=== PATIENT | female | born 1955 | race Caucasian/White ===

== ENCOUNTER → 2017-07-25 | Outpatient (CLI) | payer MEDICAID ==
[~2017-07-25] MED LIST: No meds per pt.
== END | disposition home or self-care (01) ==
LOC: CFH 11:27
PROVIDERS: ATTEND Family Medicine
DX: Z13.820 Encounter for screening for osteoporosis (principal); M81.0 Age-related osteoporosis without current pathological fracture
CPT/HCPCS: 77080

== ENCOUNTER 2018-02-12 13:30 | Inpatient (IN) | payer MEDICAID ==
[~2018-02-12] VITALS: Ht 162.6 cm; Wt 56.6 kg
[2018-02-12 14:15] LABS: HCT (SEDRATE) 42.1 % (34.6-47.8)
[2018-02-12 14:16] LABS: BASOPHILS # (AUTO) 0.04 x10^3/uL (0-0.1); BASOPHILS % (AUTO) 1 % (0-1); EOSINOPHILS # (AUTO) 0.05 x10^3/uL (0-0.4); EOSINOPHILS % (AUTO) 1 % (1-7); LYMPHOCYTES # (AUTO) 2.35 x10^3/uL (1-3.4); LYMPHOCYTES % (AUTO) 38 % (22-44); MD NO; MEAN CORPUSCULAR HEMOGLOBIN 31.3 pg (27.0-34.8); MEAN CORPUSCULAR VOLUME 91.9 fL (80-100); MEAN PLATELET VOLUME 7.7 fL (7.4-10.4); MONOCYTES # (AUTO) 0.34 x10^3/uL (0.2-0.8); MONOCYTES % (AUTO) 6 % (2-9); NEUTROPHILS # (AUTO) 3.44 x10^3/uL (1.8-6.8); NEUTROPHILS % (AUTO) 55 % (42-75); PLATELET COUNT 281 x10^3/uL (130-400); RED BLOOD COUNT 4.59 x10^6/uL (3.82-5.3); RED CELL DISTRIBUTION WIDTH 13.4 % (9.6-15.2)
[2018-02-12 14:18] LABS: MICROSCOPIC NOT IND
[2018-02-12 14:25] LABS: INTERNATIONAL NORMALIZED RATIO 1.03 (0.93-1.1); PROTHROMBIN TIME 10.6 Seconds (9.6-11.5)
[2018-02-12 14:28] LABS: ALBUMIN 4.3 g/dL (3.4-5.0); ANION GAP 8 mmol/L (5-15); CALCIUM 9.2 mg/dL (8.5-10.1); CHLORIDE 106 mmol/L (98-107)
[2018-02-12 14:33] LABS: ALANINE AMINOTRANSFERASE 28 U/L (12-78); ALKALINE PHOSPHATASE 63 U/L (45-117); BILIRUBIN,TOTAL 0.4 mg/dL (0.2-1.0); TOTAL PROTEIN 7.5 g/dL (6.4-8.2)
[2018-02-15] MEDS ORDERED: LACTATED RINGERS 1,000 ML IV SCH (06:10)
[2018-02-15 06:38] VITALS: BP 134/78
[2018-02-15] MEDS ORDERED: BUPIVACAINE/PF 0.5% ONE (06:39)
[2018-02-15] MEDS ORDERED: TRANEXAMIC ACID 100 MG/ML, 10ML ONE ×2 (06:39)
[2018-02-15] MEDS ORDERED: VANCOMYCIN 1,000 MG ONE (06:40)
[2018-02-15] MEDS ORDERED: THROMBIN 20,000 UNIT VIAL TP ONE (06:40)
[2018-02-15] MEDS ORDERED: EPINEPHRINE 1 MG/ML, 1ML ONE (06:49)
[2018-02-15] MEDS ORDERED: GABAPENTIN 300 MG CAPSULE PO ONE (07:00)
[2018-02-15] MEDS ORDERED: ONDANSETRON ODT 8 MG PO ONE (07:00)
[2018-02-15] MEDS ORDERED: OXYcodone IR 5MG TABLET PO ONE (07:00)
[2018-02-15] MEDS ORDERED: SCOPOLAMINE PATCH, 1.5MG PATCH.TD72 TD ONE (07:00)
[2018-02-15] MEDS ORDERED: ACETAMINOPHEN 500 MG TABLET PO ONE (07:00)
[2018-02-15] MEDS ORDERED: PROPOFOL 10 MG/ML, 20ML ONE (07:02)
[2018-02-15] MEDS ORDERED: CEFAZOLIN 1,000 MG ONE (07:02)
[2018-02-15] MEDS ORDERED: DEXAMETHASONE 4 MG/ML, 1ML ONE ×2 (07:02)
[2018-02-15] MEDS ORDERED: SUCCINYLCHOLINE 20 MG/ML, 10ML ONE (07:02)
[2018-02-15] MEDS ORDERED: FENTANYL PF 250 MCG/5ML ONE (07:04)
[2018-02-15] MEDS ORDERED: PROPOFOL 150 ML ONE (07:04)
[2018-02-15] MEDS ORDERED: MIDAZOLAM 1 MG/ML, 2ML ONE (07:04)
[2018-02-15] MEDS ORDERED: OXYcodone 5 MG/5 ML ORAL.SOL UDC PO PRN (07:30)
[2018-02-15] MEDS ORDERED: HALOPERIDOL 5 MG/ML IV PRN (07:30)
[2018-02-15] MEDS ORDERED: LABETALOL 5MG/ML, 20ML IV PRN ×2 (07:30→14:00)
[2018-02-15] MEDS ORDERED: ONDANSETRON 2MG/ML, 2ML IV PRN ×2 (07:30→14:00)
[2018-02-15] MEDS ORDERED: EPHEDRINE 50 MG/ML, 1ML IVPush PRN (07:30)
[2018-02-15] MEDS ORDERED: hydrALAzine 20 MG/ML, 1ML IV PRN (07:30)
[2018-02-15] MEDS ORDERED: ALBUTEROL SULFATE 2.5 MG/3 ML NPPB PRN (07:30)
[2018-02-15] MEDS ORDERED: PROMETHAZINE 25 MG/ML, 1ML IV PRN (07:30)
[2018-02-15] MEDS ORDERED: FENTANYL PF 100 MCG/2ML IV PRN (07:30)
[2018-02-15] MEDS ORDERED: METOPROLOL 1 MG/ML, 5ML IV PRN (07:30)
[2018-02-15] MEDS ORDERED: MEPERIDINE/PF 25MG/0.5ML IVPush PRN (07:30)
[2018-02-15] MEDS ORDERED: DIAZEPAM 5 MG/ML, 2ML IVPush PRN (07:30)
[2018-02-15] MEDS ORDERED: ONDANSETRON 2MG/ML, 2ML ONE (07:34)
[2018-02-15] MEDS ORDERED: BACITRACIN 50,000 UNIT ONE (08:05)
[2018-02-15] MEDS ORDERED: OXYcodone 5 MG/5 ML ORAL.SOL UDC ONE (12:20)
[2018-02-15] MEDS: LABETALOL 5MG/ML, 20ML IV SCH ×2 (13:58→22:00)
[2018-02-15] MEDS ORDERED: BISACODYL 10 MG SUPP PR PRN (14:00)
[2018-02-15] MEDS ORDERED: PROMETHAZINE 25 MG/ML, 1ML IM PRN (14:00)
[2018-02-15] MEDS ORDERED: DIAZEPAM 5 MG TABLET PO PRN (14:00)
[2018-02-15] MEDS ORDERED: KETOROLAC 30 MG/1 ML IV ONE (14:00)
[2018-02-15] MEDS ORDERED: morphine SULFATE 10 MG/ML, 1ML IV PRN (14:00)
[2018-02-15] MEDS ORDERED: DIAZEPAM 5 MG/ML, 2ML IV PRN (14:00)
[2018-02-15] MEDS ORDERED: SODIUM CHLORIDE 0.9% 1,000 ML IV PRN (14:00)
[2018-02-15] MEDS ORDERED: LORazepam 1MG TABLET PO PRN (14:00)
[2018-02-15] MEDS: D5%-0.9% NACL+KCL 20MEQ 1,000 ML IV SCH (14:27)
[2018-02-15] MEDS: CEFAZOLIN PMX 1GM/50ML 50 ML IVPB SCH ×2 (15:34→23:22)
[2018-02-15 18:54] VITALS: BP 106/66
[2018-02-15] MEDS ORDERED: ZOLPIDEM 5MG TABLET PO PRN (21:00)
[2018-02-16 00:15] VITALS: BP 109/70
[2018-02-16] MEDS: D5%-0.9% NACL+KCL 20MEQ 1,000 ML IV SCH ×3 (01:09→21:35)
[2018-02-16 04:14] VITALS: BP 108/70
[2018-02-16 05:21] VITALS: BP 96/56
[2018-02-16] MEDS: LABETALOL 5MG/ML, 20ML IV SCH ×3 (05:21→20:34)
[2018-02-16 05:48] LABS: BASOPHILS # (AUTO) 0.03 x10^3/uL (0-0.1); BASOPHILS % (AUTO) 1 % (0-1); EOSINOPHILS % (AUTO) 0 % (1-7); LYMPHOCYTES # (AUTO) 0.97 x10^3/uL (1-3.4); LYMPHOCYTES % (AUTO) 14 % (22-44); MD NO; MEAN CORPUSCULAR HEMOGLOBIN 31.3 pg (27.0-34.8); MEAN CORPUSCULAR HGB CONC 33.6 g/dL (32.4-35.8); MEAN CORPUSCULAR VOLUME 93.3 fL (80-100); MEAN PLATELET VOLUME 8.2 fL (7.4-10.4); MONOCYTES # (AUTO) 0.39 x10^3/uL (0.2-0.8); MONOCYTES % (AUTO) 6 % (2-9); NEUTROPHILS # (AUTO) 5.68 x10^3/uL (1.8-6.8); NEUTROPHILS % (AUTO) 80 % (42-75); PLATELET COUNT 172 x10^3/uL (130-400); RED BLOOD COUNT 3.32 x10^6/uL (3.82-5.3); RED CELL DISTRIBUTION WIDTH 13.3 % (9.6-15.2)
[2018-02-16 08:00] VITALS: BP 96/64
[2018-02-16] MEDS: SENNA/DOCUSATE TABLET PO SCH (09:38)
[2018-02-16 14:00] VITALS: BP 95/52
[2018-02-16] MEDS: ACETAMINOPHEN 500 MG TABLET PO PRN (14:39)
[2018-02-16] MEDS: KETOROLAC 30 MG/1 ML IVPush PRN (14:39)
[2018-02-16] MEDS: DEXAMETHASONE 4 MG/ML, 1ML IV PRN (14:39)
[2018-02-16] MEDS: OXYcodone IR 5MG TABLET PO PRN (16:18)
[2018-02-16 18:41] VITALS: BP 102/58
[2018-02-17 00:58] VITALS: BP 98/59
[2018-02-17] MEDS: LABETALOL 5MG/ML, 20ML IV SCH ×3 (04:16→22:00)
[2018-02-17] MEDS: KETOROLAC 30 MG/1 ML IVPush PRN ×2 (04:59→11:16)
[2018-02-17] MEDS: DEXAMETHASONE 4 MG/ML, 1ML IV PRN (05:33)
[2018-02-17] MEDS: OXYcodone IR 5MG TABLET PO PRN ×6 (06:12→22:53)
[2018-02-17 08:00] VITALS: BP 94/57
[2018-02-17] MEDS: D5%-0.9% NACL+KCL 20MEQ 1,000 ML IV SCH ×2 (08:18→17:30)
[2018-02-17] MEDS: SENNA/DOCUSATE TABLET PO SCH (08:21)
[2018-02-17 13:59] VITALS: BP 96/56
[2018-02-17] MEDS: ACETAMINOPHEN 500 MG TABLET PO PRN ×2 (14:09→22:52)
[2018-02-17 14:10] VITALS: BP 98/59
[2018-02-17 19:33] VITALS: BP 110/61
[2018-02-17 22:41] VITALS: BP 96/59
[2018-02-17] MEDS: MAGNESIUM HYDROXIDE 8%, 30ML UDC PO PRN (23:14)
[2018-02-18 00:48] VITALS: BP 110/66
[2018-02-18] MEDS: D5%-0.9% NACL+KCL 20MEQ 1,000 ML IV SCH ×3 (03:30→23:07)
[2018-02-18] MEDS: DEXAMETHASONE 4 MG/ML, 1ML IV PRN (04:14)
[2018-02-18] MEDS: LABETALOL 5MG/ML, 20ML IV SCH ×3 (06:00→21:05)
[2018-02-18 06:10] VITALS: BP 98/60
[2018-02-18] MEDS: OXYcodone IR 5MG TABLET PO PRN ×5 (06:15→23:23)
[2018-02-18 07:03] VITALS: BP 109/65
[2018-02-18] MEDS: SENNA/DOCUSATE TABLET PO SCH (08:05)
[2018-02-18] MEDS: ACETAMINOPHEN 500 MG TABLET PO PRN ×2 (08:10→15:29)
[2018-02-18 12:52] VITALS: BP 133/82
[2018-02-18 18:25] VITALS: BP 109/64
[2018-02-19 02:02] VITALS: BP 132/72
[2018-02-19] MEDS: OXYcodone IR 5MG TABLET PO PRN ×6 (03:06→22:35)
[2018-02-19] MEDS: LABETALOL 5MG/ML, 20ML IV SCH ×3 (06:00→22:00)
[2018-02-19] MEDS: SENNA/DOCUSATE TABLET PO SCH (07:07)
[2018-02-19 07:40] VITALS: BP 128/72
[2018-02-19] MEDS: D5%-0.9% NACL+KCL 20MEQ 1,000 ML IV SCH ×2 (08:43→19:30)
[2018-02-19] MEDS: ACETAMINOPHEN 500 MG TABLET PO PRN ×2 (12:19→21:22)
[2018-02-19 12:53] VITALS: BP 105/65
[2018-02-19] MEDS: MAGNESIUM HYDROXIDE 8%, 30ML UDC PO PRN (17:30)
[2018-02-19 18:25] VITALS: BP 122/71
[2018-02-20 00:48] VITALS: BP 134/75
[2018-02-20] MEDS: OXYcodone IR 5MG TABLET PO PRN ×4 (02:03→13:11)
[2018-02-20] MEDS: D5%-0.9% NACL+KCL 20MEQ 1,000 ML IV SCH (05:14)
[2018-02-20] MEDS: LABETALOL 5MG/ML, 20ML IV SCH ×2 (05:15→13:47)
[2018-02-20] MEDS: ACETAMINOPHEN 500 MG TABLET PO PRN (06:14)
[2018-02-20 06:57] VITALS: BP 121/74
[2018-02-20] MEDS: SENNA/DOCUSATE TABLET PO SCH (09:49)
[2018-02-20] MEDS ORDERED: OXYC15TA PO (15:01)
[2018-02-20] MEDS ORDERED: CEPH-368 PO (15:02)
[2018-02-20] MEDS ORDERED: DIAZ5TAB4 PO (15:02)
== END 2018-02-20 15:32 | disposition home or self-care (01) | DRG 455 ==
LOC: ORIP 02-15 05:32 → EDSTATUS 02-15 07:30 → 4NOR 02-15 13:11 → DCLOUNGE 02-20 15:00
PROVIDERS: ADMIT Orthopaedic Surgery Orthopaedic Surgery of the Spine; ATTEND Orthopaedic Surgery Orthopaedic Surgery of the Spine
PROC: 0RGA071 Fusion of Thoracolumbar Vertebral Joint with Autologous Tissue Substitute, Posterior Approach, Posterior Column, Open Approach (ICD-10-PCS; 2018-02-15)
PROC: 0RHA04Z Insertion of Internal Fixation Device into Thoracolumbar Vertebral Joint, Open Approach (ICD-10-PCS; 2018-02-15)
PROC: 01N80ZZ Release Thoracic Nerve, Open Approach (ICD-10-PCS; 2018-02-15)
PROC: 07DR3ZZ Extraction of Iliac Bone Marrow, Percutaneous Approach (ICD-10-PCS; 2018-02-15)
PROC: 4A11X4G Monitoring of Peripheral Nervous Electrical Activity, Intraoperative, External Approach (ICD-10-PCS; 2018-02-15)
PROC: 0SG00AJ Fusion of Lumbar Vertebral Joint with Interbody Fusion Device, Posterior Approach, Anterior Column, Open Approach (ICD-10-PCS; principal; 2018-02-15 07:30)
DX: M48.05 Spinal stenosis, thoracolumbar region (principal); M43.15 Spondylolisthesis, thoracolumbar region; M51.15 Intervertebral disc disorders with radiculopathy, thoracolumbar region
CPT/HCPCS: 36415; 71046; 72072; 80053; 81003; 85025; 85610; 85651; 85730; 86850; 86870; 86880; 86900; 86902; 86922; 86923; 93005; C1713; J0171; J0690; J1100; J1885; J2250; J2270; J2405; J2704; J3010; J3370; J3490; Q0162; C1760; C1762; C1763; C9362; J0330; J3480; J7120

== ENCOUNTER → 2019-07-03 | Outpatient (CLI) | payer MEDICAID ==
[~2019-07-03] MED LIST changes: +CEPH-368 PO; +DIAZ5TAB4 PO; +OXYC15TA PO
== END | disposition home or self-care (01) ==
LOC: CFH 11:05
PROVIDERS: ATTEND Internal Medicine
DX: M43.25 Fusion of spine, thoracolumbar region (principal)
CPT/HCPCS: 71046

== ENCOUNTER → 2020-06-07 | Outpatient (CLI) | payer MEDICARE ==
[~2020-06-07] MED LIST changes: +CALC-451 PO; +FLAX10004 PO; +MULT-658 PO; +OMEG100023 PO; +OXYC-302 PO; -OXYC15TA PO; +OXYC15TA3 PO; +UBID100C24 PO
[2020-06-07 15:58] LABS: BASOPHILS % (AUTO) 2 % (0-1); EOSINOPHILS % (AUTO) 1 % (1-7); LYMPHOCYTES % (AUTO) 37 % (22-44); MEAN PLATELET VOLUME 7.6 fL (7.4-10.4); MONOCYTES % (AUTO) 8 % (2-9); NEUTROPHILS % (AUTO) 53 % (42-75); PLATELET COUNT 316 x10^3/uL (130-400); RED BLOOD COUNT 4.32 x10^6/uL (3.82-5.3); RED CELL DISTRIBUTION WIDTH 13.3 % (9.6-15.2)
[2020-06-07 16:00] LABS: MICROSCOPIC AUTO
[2020-06-07 16:05] LABS: ALBUMIN 4.2 g/dL (3.4-5.0); ANION GAP 4 mmol/L (5-15); CALCIUM 9.1 mg/dL (8.5-10.1); CHLORIDE 105 mmol/L (98-107)
[2020-06-07 16:14] LABS: ALANINE AMINOTRANSFERASE 32 U/L (12-78); ALKALINE PHOSPHATASE 96 U/L (45-117); BILIRUBIN,TOTAL 0.4 mg/dL (0.2-1.0); CREATININE 0.64 mg/dL (0.55-1.02); MD NO; TOTAL PROTEIN 7.4 g/dL (6.4-8.2)
== END | disposition home or self-care (01) ==
LOC: STAR 14:26
PROVIDERS: ATTEND Obstetrics & Gynecology
DX: Z01.812 Encounter for preprocedural laboratory examination (principal); Z20.828 Contact with and (suspected) exposure to other viral communicable diseases; N83.202 Unspecified ovarian cyst, left side; N83.201 Unspecified ovarian cyst, right side
CPT/HCPCS: 36415; 71046; 80053; 81001; 85025; 87086; 87635; 93005

== ENCOUNTER 2020-06-11 05:59 | Day surgery (SDC) | payer MEDICARE ==
[~2020-06-11] VITALS: Ht 157.5 cm; Wt 56.0 kg
[2020-06-11 06:32] VITALS: BP 145/87
[2020-06-11] MEDS ORDERED: BUPIVACAINE/PF 0.25% ONE (06:50)
[2020-06-11] MEDS ORDERED: EPINEPHRINE 1 MG/ML, 1ML ONE (06:50)
[2020-06-11] MEDS ORDERED: CHLORHEXIDINE 15 ML UDC MM ONE (07:00)
[2020-06-11] MEDS ORDERED: LACTATED RINGERS 1,000 ML IV SCH (07:00)
[2020-06-11] MEDS ORDERED: SCOPOLAMINE 1MG PATCH TD SCH (07:30)
[2020-06-11] MEDS ORDERED: ACETAMINOPHEN 500 MG TABLET PO ONE (07:30)
[2020-06-11] MEDS ORDERED: SCOPOLAMINE 1MG PATCH TD ONE (07:31)
[2020-06-11] MEDS ORDERED: ACETAMINOPHEN 500 MG TABLET ONE (07:31)
[2020-06-11] MEDS ORDERED: FENTANYL PF 250 MCG/5ML ONE (08:49)
[2020-06-11] MEDS ORDERED: PROPOFOL 10 MG/ML, 20ML ONE (08:50)
[2020-06-11] MEDS ORDERED: SUCCINYLCHOLINE 20 MG/ML, 10ML ONE (08:50)
[2020-06-11] MEDS ORDERED: ONDANSETRON 2MG/ML, 2ML ONE (08:50)
[2020-06-11] MEDS ORDERED: CEFAZOLIN 1,000 MG ONE (08:50)
[2020-06-11] MEDS ORDERED: NEOSTIGMINE 1 MG/ML, 10ML ONE (08:50)
[2020-06-11] MEDS ORDERED: ROCURONIUM 10MG/ML,5ML ONE (08:50)
[2020-06-11] MEDS ORDERED: DEXAMETHASONE 4 MG/ML, 1ML ONE (08:50)
[2020-06-11] MEDS ORDERED: GLYCOPYRROLATE 0.2MG/1ML, 5ML ONE (08:50)
[2020-06-11] MEDS ORDERED: OXYcodone 5 MG/5 ML ORAL.SOL UDC ONE (09:13)
[2020-06-11] MEDS ORDERED: FENTANYL PF 100 MCG/2ML ONE (09:13)
[2020-06-11] MEDS: FENTANYL PF 100 MCG/2ML IV PRN ×2 (09:17→09:29)
[2020-06-11] MEDS ORDERED: EPHEDRINE 50 MG/ML, 1ML IVPush PRN (09:30)
[2020-06-11] MEDS ORDERED: METHOCARBAMOL 1,000 MG in DEXTROSE 5% 100 ML IV PRN (09:30)
[2020-06-11] MEDS ORDERED: HYDROmorphone 1 MG/ML, 1ML INJ IVPush PRN (09:30)
[2020-06-11] MEDS ORDERED: LABETALOL 5MG/ML, 20ML IV PRN (09:30)
[2020-06-11] MEDS ORDERED: ONDANSETRON 2MG/ML, 2ML IVPush PRN (09:30)
[2020-06-11] MEDS ORDERED: MEPERIDINE/PF 25MG/0.5ML IVPush PRN (09:30)
[2020-06-11] MEDS ORDERED: LORazepam 2 MG/ML, 1ML IVPush PRN (09:30)
[2020-06-11] MEDS ORDERED: OXYcodone 5 MG/5 ML ORAL.SOL UDC PO PRN (09:30)
[2020-06-11] MEDS ORDERED: hydrALAzine 20 MG/ML, 1ML IV PRN (09:30)
[2020-06-11] MEDS ORDERED: ACETAMINOPHEN 325 MG TABLET PO PRN (09:30)
[2020-06-11] MEDS ORDERED: HALOPERIDOL 5 MG/ML IV PRN (09:30)
[2020-06-11] MEDS ORDERED: PROMETHAZINE 25 MG/ML, 1ML ONE (09:36)
[2020-06-11] MEDS ORDERED: PROMETHAZINE 25 MG/ML, 1ML IVPush PRN (10:00)
== END 2020-06-11 12:00 | disposition home or self-care (01) ==
LOC: OUT 05:59
PROVIDERS: ATTEND Obstetrics & Gynecology
DX: D27.1 Benign neoplasm of left ovary (principal); D27.0 Benign neoplasm of right ovary; N83.8 Other noninflammatory disorders of ovary, fallopian tube and broad ligament; K66.0 Peritoneal adhesions (postprocedural) (postinfection); M81.0 Age-related osteoporosis without current pathological fracture; Z98.890 Other specified postprocedural states; Z79.899 Other long term (current) drug therapy; Z91.048 Other nonmedicinal substance allergy status; Z72.89 Other problems related to lifestyle; Z82.49 Family history of ischemic heart disease and other diseases of the circulatory system; Z83.3 Family history of diabetes mellitus
CPT/HCPCS: 36415; 58661; 86850; 86870; 86900; 86902; 86922; 86923; 88305; J0171; J0330; J0690; J1100; J2405; J2550; J2704; J2710; J3010; J7120